=== PATIENT | female | born 1975 | race Caucasian/White ===

== ENCOUNTER 2025-07-15 14:28 | Emergency (ER) | payer BC, OTHER ==
[2025-07-15] MEDS ORDERED: ADENOSINE 6 MG/2 ML VIAL IVPUSH ONE (14:54)
[2025-07-15 14:59] VITALS: TEMP 98.1; BMI 34.2
[2025-07-15] MEDS: ADENOSINE 6 MG/2 ML VIAL IVPUSH ONE (15:20)
[2025-07-15] MEDS: METOPROLOL TARTRATE 25 MG TABLET (FP) PO ONE (15:22)
[2025-07-15 15:33] LABS: MCHC 32.9 g/dl (32.2-35.5); MEAN CELL VOLUME 86.1 fl (79.4-94.8); MEAN PLT VOLUME 9.4 fl (9.4-12.3); RDW 12.6 % (12.2-17.1)
[2025-07-15 16:11] LABS: GLUCOSE,RANDOM 90.0 mg/dL (74-106); TOT PROT 7.9 g/dl (6.4-8.2)
[2025-07-15 16:12] LABS: CO2 22.0 mmol/L (21-32)
[2025-07-15 16:14] LABS: ALK PHOS 74.0 U/L (40-150)
[2025-07-15 16:17] LABS: CREATININE 1.0 mg/dL (0.55-1.3); SGOT/AST 30.0 U/L (5-34); SGPT/ALT 27.0 U/L (0-55)
[2025-07-15 16:39] LABS: HCV DIAGNOSTIC IN-HOUSE W/RFLX NON-REACTIVE (NONREACTIVE); HIV INTERPRETATION NEGATIVE (NEGATIVE)
[2025-07-15 18:10] VITALS: BP 113/79; PULSE 92; RESP 20
== END 2025-07-15 18:10 | disposition home or self-care (01) ==
LOC: JER 14:28
PROC: 3E033GC Introduction of Other Therapeutic Substance into Peripheral Vein, Percutaneous Approach (ICD-10-PCS; principal; 2025-07-15)
DX: I47.10 Supraventricular tachycardia, unspecified (principal); R07.89 Other chest pain; R00.2 Palpitations
CPT/HCPCS: 36415; 80053; 84443; 84703; 85025; 86803; 87389; 88300-TC; 93005; 93010; 99284-25